=== PATIENT | female | born 1955 | race Caucasian/White ===

== ENCOUNTER → 2017-09-30 | Outpatient (CLI) | payer MEDICAID | LOC: FIMAGING 12:28 | PROVIDERS: ATTEND Thoracic Surgery (Cardiothoracic Vascular Surgery) | DX: I51.7 Cardiomegaly (principal); I25.10 Atherosclerotic heart disease of native coronary artery without angina pectoris ==

== ENCOUNTER 2017-10-01 06:46 | Inpatient (IN) | payer MEDICAID, OTHER ==
[~2017-10-01 06:46] MED LIST: ADENOSINE 6 MG/2 ML VIAL ONE; ALBUMIN 5% 250 ML BOTTLE IV ONE; AMINOCAPROIC ACID 5 GM/20 ML VIAL IV ONE; AMIODARONE HCL 150 MG/3 ML VIAL ONE; CALCIUM CHLORIDE 1 GM/10 ML INJ ONE; CHLORHEXIDINE GLUC HIBICLENS 118 ML BTL TP SCH; CITRATE DEXTROSE SOLN 500 ML BAG MISC ONE; CITRATE DEXTROSE SOLN 500 ML BAG ONE; DOPamine/DEXTROSE/250 ML BAG IV ONE; HEPARIN 10,000 UNIT/10 ML MDV ONE; INSULIN REGULAR HUMAN 100 UNIT in NS 100 ML IV ONE; LIDOCAINE 2% 100 MG/5 ML SYR ONE; MAGNESIUM SULFATE 1 GM/2 ML VIAL ONE; MANNITOL 25% 12.5 GM/50 ML VIAL IVP ONE; MILRINONE/DEXTROSE/100 ML BAG IV ONE; MUPIROCIN 2% 22 GM OINT NS ONE; NA BICARBONATE 50 MEQ/50 ML VIAL ONE; NOREPINEPHRINE BITARTRATE 16 MG in NS 250 ML IV ONE; PHENYLEPHRINE HCL 50 MG in NS 250 ML IV ONE; PROTAMINE SULFATE 50 MG/5 ML VIAL IVP ONE; SODIUM BICARBONATE 20 MEQ, LIDOCAINE 1% 10 ML in NORMOSOL-R 1,000 ML MISC ONE; VERAPAMIL 5 MG, NITROGLYCERIN 2.5 MG, HEPARIN 500 UNIT, SODIUM BICARBONATE 0.2 MEQ in L... MISC ONE; ceFAZolin 1 GM VIAL ONE; ceFAZolin 2 GM/SWFI 2 GM/20 ML SYR IVP ONE; methylPREDNISolone SOD SUCC 1 GM/8 ML VIAL ONE; niCARdipine/NACL 200 ML IV SCH; niCARdipine/NACL/200 ML BAG IV ONE
[2017-10-01] MEDS ORDERED: PAPAVERINE HCL 60 MG/2 ML SDV ONE ×2 (07:22→12:06)
[2017-10-01] MEDS ORDERED: VERAPAMIL 5 MG/2 ML VIAL ONE ×2 (07:22→12:06)
[2017-10-01] MEDS ORDERED: MINERAL OIL 10 ML VIAL ONE ×2 (07:22→12:06)
[2017-10-01] MEDS ORDERED: LIDOCAINE 1% 2 ML INJ ID PRN (07:27)
[2017-10-01] MEDS ORDERED: LR 1,000 ML IV ONE (07:27)
--- NOTE | 2017-10-01 07:36 | PDHPUP ---
History & Physical Update H&P update statement: This history and physical update is based on an assessment of the patient which was completed after admission or registration (within 24 hours), but prior to the surgery/procedure. H&P update: H&P reviewed & patient examined H&P changes: - Tired more often. - Slight LFT elevation - will monitor post-op
[2017-10-01] MEDS ORDERED: MIDAZOLAM 2 MG/2 ML VIAL IVP ONE (08:12)
--- NOTE | 2017-10-01 08:12 | PDANEPAE ---
ANE History of Present Illness 62 yo for cabg ef 35 ANE Past Medical History - Cardiovascular History Hx Hypertension: No Hx Arrhythmias: No Hx Chest Pain: Yes Hx Coronary Artery / Peripheral Vascular Disease: Yes Hx CHF / Valvular Disease: Yes Hx Palpitations: No Cardiovascular History Comment: acute mi 02/05/17. chf. hyperlipidemia. thrombus in heart chamber - Pulmonary History Hx COPD: No Hx Asthma/Reactive Airway Disease: Yes Hx Recent Upper Respiratory Infection: No Hx Oxygen in Use at Home: No Hx Sleep Apnea: Yes Sleep Apnea Screening Result - Last Documented: Positive Pulmonary History Comment: asthma. hx of bronchitis and pna. bernadette positive- unable to tolerate cpap in hospital - Neurologic History Hx Cerebrovascular Accident: No Hx Seizures: No Hx Dementia: No - Endocrine History Hx Diabetes: No Endocrine History Comment: hypothyroidism - Renal History Hx Renal Disorders: Yes Renal History Comment: renal insufficiency - Liver History Hx Hepatic Disorders: Yes Hepatic History Comment: elevated LFT's - Neurological & Psychiatric Hx Hx Neurological and Psychiatric Disorders: No - Cancer History Hx Cancer: Yes Cancer History Comment: liver cancer dx'd in 2003. chemo x 14 mos - Congenital Disorder History Hx Congenital Disorders: No - GI History Hx Gastrointestinal Disorders: Yes Gastrointestinal History Comment: hx vomitting extensively during chemo - Other Health History Other Health History: wears glasses/ contacts. full dentures - Chronic Pain History Chronic Pain: Yes (left leg, back pain) - Surgical History Prior Surgeries: tonsillectomy. dawn. wrist surgery. left leg surgery. liver biopsies ANE Review of Systems Review of Systems: - Exercise capacity METS (RN): 3 METS ANE Patient History - Allergies Allergies/Adverse Reactions: amoxicillin Allergy (Verified 09/23/17 10:30) giant hives and very swollen Penicillins Allergy (Verified 10/01/17 08:04) giant hives and very swollen sharp smells Allergy (Uncoded 09/23/17 10:30) send her into a coughing fit - Home Medications Home medications: home medication list seen and reviewed Home Medications: Albuterol [Proventil Inhaler HFA (*)] 1 - 2 puffs IH DAILY PRN 10/01/17 [Last Taken Unknown] Aspirin [Aspirin EC] 500 mg PO DAILY 10/01/17 [Last Taken 09/30/17] Atorvastatin Calcium [Lipitor 40 mg (*)] 80 mg PO HS 10/01/17 [Last Taken 22:00] Carvedilol [Coreg (*)] 3.125 mg PO BID 10/01/17 [Last Taken 09/30/17 22:00] Levothyroxine [Synthroid 137 mcg (*)] 137 mcg PO DAILY06 10/01/17 [Last Taken 05:00] Nitroglycerin [Nitrostat 0.4 mg (*)] 0.4 mg SL Q5M PRN 10/01/17 [Last Taken Unknown] - NPO status NPO Status: no food or drink >8 hours NPO Since - Liquids (Date): 09/30/17 NPO Since - Liquids (Time): 22:00 NPO Since - Solids (Date): 09/30/17 NPO Since - Solids (Time): 22:00 - Smoking Hx Smoking Status: Never smoked - Family Anes Hx Family Hx Anesthesia Complications: none ANE Labs/Vital Signs - Vital Signs Blood Pressure: 136/84 Heart Rate: 77 Respiratory Rate: 20 O2 Sat (%): 95 Height: 5 ft 5 in Weight: 88.904 kg ANE Physical Exam - Airway Neck exam: FROM Mallampati Score: Class 1 Mouth exam: dentures - Pulmonary Pulmonary: no respiratory distress - Cardiovascular Cardiovascular: regular rate and rhythym - ASA Status ASA Status: IV ANE Anesthesia Plan Anesthesia Plan: general endotracheal anesthesia Lines/Monitors: arterial line, central line, AUNG
[2017-10-01] MEDS ORDERED: MIDAZOLAM 2 MG/2 ML VIAL ONE (08:15)
[2017-10-01] MEDS ORDERED: PROPOFOL/EMULSION 500 MG/50 ML BOTTLE IV ONE (08:21)
[2017-10-01] MEDS ORDERED: fentaNYL 100 MCG/2 ML INJ ONE ×2 (08:21→13:28)
[2017-10-01] MEDS ORDERED: REMIFENTANIL HCL 1 MG VIAL ONE (08:21)
[2017-10-01] MEDS ORDERED: DEXMEDETOMIDINE HCL 400 MCG in NS 100 ML IV SCH (08:30)
[2017-10-01] MEDS ORDERED: DEXMEDETOMIDINE IN 0.9 % NACL 100 ML IV SCH (08:30)
[2017-10-01] MEDS ORDERED: ceFAZolin 2 GM/SWFI 20 ML SYR IVP ONE (08:33)
[2017-10-01] MEDS ORDERED: MAGNESIUM SULF 2 GM/WATER 50 ML BAG IV ONE (10:15)
[2017-10-01] MEDS ORDERED: ALBUMIN 5% 250 ML BOTTLE IV ONE (10:41)
[2017-10-01] MEDS ORDERED: CEPACOL LOZENGE PO PRN (13:51)
[2017-10-01] MEDS ORDERED: D50W 25 GM/50 ML SYR IVP PRN (13:51)
[2017-10-01] MEDS ORDERED: fentaNYL 100 MCG/2 ML INJ IVP PRN (13:51)
[2017-10-01] MEDS ORDERED: LACTULOSE 20 GM/30 ML UDCUP PO PRN (13:51)
[2017-10-01] MEDS ORDERED: METOCLOPRAMIDE 10 MG/2 ML VIAL IVP PRN (13:51)
[2017-10-01] MEDS ORDERED: MAGNESIUM HYDROXIDE 30 ML UDCUP PO PRN (13:51)
[2017-10-01] MEDS ORDERED: BISACODYL 10 MG SUPP PR PRN (13:51)
[2017-10-01] MEDS ORDERED: POLYETHYLENE GLYCOL 3350 17 GM PKT PO PRN (13:51)
[2017-10-01] MEDS ORDERED: MEPERIDINE 25 MG/ML SYR IVP PRN (13:51)
[2017-10-01] MEDS ORDERED: POTASSIUM Cl (KCl) 50 ML IV PRN (13:51)
[2017-10-01] MEDS ORDERED: MAGNESIUM SULF 2 GM/WATER 50 ML IV ONE (13:51)
[2017-10-01] MEDS ORDERED: PANTOPRAZOLE SODIUM 40 MG VIAL IVP ONE (13:51)
[2017-10-01] MEDS ORDERED: ONDANSETRON DISINTEGRATING 4 MG TAB PO PRN (13:51)
[2017-10-01] MEDS ORDERED: SODIUM CL NASAL 45 ML BTL EACHNARE PRN (13:51)
[2017-10-01] MEDS ORDERED: ACETAMINOPHEN 650 MG SUPP PR PRN (13:51)
[2017-10-01] MEDS ORDERED: NS 1,000 ML IV SCH (14:00)
[2017-10-01] MEDS ORDERED: INSULIN REGULAR HUMAN 100 UNIT in NS 100 ML IV SCH (14:00)
[2017-10-01] MEDS ORDERED: SODIUM BICARBONATE 50 MEQ/50 ML SYR ONE (14:41)
--- NOTE | 2017-10-01 14:42 | GOP ---
[f rep st] OPERATIVE REPORT DATE OF OPERATION: SURGEON: Bon Montoya DO INTERMODAL OWNER OPERATOR TRUCK DRIVER: CORRINA Sanders. ANESTHESIA: Zacarias Epstein MD. PREOPERATIVE DIAGNOSIS: Ischemic cardiomyopathy with severe 3-vessel disease. POSTOPERATIVE DIAGNOSIS: Ischemic cardiomyopathy with severe 3-vessel disease. PROCEDURE PERFORMED: 1. Coronary bypass grafting x5 with left internal mammary artery to the left anterior descending, sa phenous vein graft to the diagonal, saphenous vein graft to the posterior lateral circumflex, sapheno us vein graft to the marginal right, sequential to the posterior descending artery. 2. AtriClip to the left atrial appendage. 3. Endoscopic vein harvest by CORRINA Sanders. FINDINGS: DESCRIPTION OF PROCEDURE: Patient was consented for surgery, brought to the operating room intubated , and monitoring lines were placed. She was prepped and draped in sterile classical manner. A time- out was confirmed with the team. Sternotomy was performed. A good quality 2 mm mammary with brisk f low was harvested while vein was harvested from the left leg endoscopically by Francis Hatch, who first assisted throughout the procedure. The vein was considered good quality, measuring 3-3.2 mm in diam eter without varicosities. Patient was heparinized and cannulated, and bypass was begun. A cardiopl egic arrest was obtained with antegrade cardioplegia topical hypothermia, and systemic cooling. Atte mpts of placing a retrograde were unsuccessful and was not forced. The ejection fraction was 30% pre operatively. There was evidence of a large lateral wall infarction and large anterior wall infarctio n in the past. She had severe diffuse 3-vessel disease (please see cath report). After arresting th e heart, the left atrial appendage was clipped with a 35 mm clip without difficulty. We then proceed ed with grafting the posterior lateral circumflex, which was a 2 mm vessel with good flow. This was brought off the ascending aorta with a cross-clamp on. We then grafted the diagonal, which was a 1.5 mm vessel but with a brisk flow, again brought off the ascending aorta. The mammary was grafted to the mid LAD, which was a chronically occluded diffusely small vessel. It was tacked to the epicardiu m. Rewarming was begun while a vein graft was anastomosed to the marginal branch of the right cabrera ry artery, which was a 2 mm vessel, and then to the PDA, which was a 3 mm vessel. The proximal anast omosis was completed. The cross-clamp was removed with suction on the ascending aortic vent. Sponta neous cardiac activity was noted to resume. Patient was then weaned from bypass. Heparin was revers ed with protamine. Cannulae were removed and oversewn. Two ventricular pacing wires and one left pl eural and one mediastinal drains were placed. The thymic fat and pericardium were closed. Chest was closed in a standard fashion. Patient was returned to ICU in stable condition. /[id number]/MODL
[2017-10-01] MEDS ORDERED: SODIUM BICARBONATE 50 MEQ/50 ML SYR IVP ONE (15:00)
[2017-10-01] MEDS: ALBUMIN 5% 250 ML IV PRN ×2 (15:00→16:27)
--- NOTE | 2017-10-01 15:00 | CPEKG ---
Heart Rate: 104 RR Interval: 577 P-R Interval: 176 QRSD Interval: 88 QT Interval: 356 QTC Interval: 469 P Scott: 62 QRS Scott: -23 T Wave Scott: 115 EKG Severity - ABNORMAL ECG - EKG Impression: SINUS TACHYCARDIA EKG Impression: ANTERIOR INFARCT, OLD Electronically Signed By: Ciara Robertson 02-Oct-2017 06:47:01
[2017-10-01] MEDS: POTASSIUM Cl (KCl) 20 MEQ in NS 50 ML IV SCH ×2 (15:28→16:30)
[2017-10-01 16:03] LABS: CALCULATED OXYGEN SATURATION 95 % (92-95); O2 CONCENTRATIION 60 % (0-100)
--- NOTE | 2017-10-01 16:59 | POSTANESTH ---
Post Anesthetic Evaluation Cardiovascular Status: Tx Hyper/Hypo-tension Respiratory Status: Other, See Comment Level of Consciousness/Mental Status: Unconscious Pain Control: Adequate, Prn Tx Ordered Nausea/Vomiting Control: Adequate, Prn Tx Ordered Complications Possibly Related to Anesthesia: None Noted (sicu on vent, sedated)
[2017-10-01] MEDS: ONDANSETRON 4 MG/2 ML VIAL IVP PRN (20:12)
[2017-10-01] MEDS: ceFAZolin 2 GM/DEXTROSE 100 ML IV SCH (22:05)
[2017-10-01] MEDS: MUPIROCIN 2% 22 GM OINT NS SCH (22:14)
[2017-10-01] MEDS: SENNOSIDES/DOCUSATE SODIUM TAB PO SCH (22:14)
[2017-10-02 00:13] LABS: HEMATOCRIT 29.6 % (38.0-47.0); HEMOGLOBIN 9.9 g/dL (12.6-16.3); MEAN CELL HEMOGLOBIN 29.5 pg (27.9-34.1); MEAN CELL HEMOGLOBIN CONCENTR. 33.4 g/dL (32.4-36.7); MEAN CELL VOLUME 88.1 fL (81.5-99.8); RED BLOOD CELL COUNT 3.36 10^6/uL (4.18-5.33); RED CELL DISTRIBUTION WIDTH 14.9 % (11.5-15.2)
[2017-10-02] MEDS ORDERED: DOPamine/DEXTROSE/250 ML BAG IV ONE (01:14)
[2017-10-02] MEDS: HYDROCODONE/APAP 5/325 TAB PO PRN ×3 (01:45→12:04)
[2017-10-02] MEDS: ceFAZolin 2 GM/DEXTROSE 100 ML IV SCH ×3 (05:53→20:59)
[2017-10-02 06:09] LABS: % IMMATURE GRANULYOCYTES 0.5 % (0.0-1.1); ABSOLUTE IMMATURE GRANULOCYTES 0.09 10^3/uL (0.00-0.10); ADD DIFF? NO; ADD MORPH? NO; ADD SCAN? NO; ATYPICAL LYMPHOCYTE FLAG 0 (0-99); FRAGMENT RBC FLAG 0 (0-99); HEMATOCRIT 29.4 % (38.0-47.0); HEMOGLOBIN 9.3 g/dL (12.6-16.3); LEFT SHIFT FLG 10 (0-99); LIPEMIA HEMOLYSIS FLAG 80 (0-99); MEAN CELL HEMOGLOBIN 28.4 pg (27.9-34.1); MEAN CELL HEMOGLOBIN CONCENTR. 31.6 g/dL (32.4-36.7); MEAN CELL VOLUME 89.6 fL (81.5-99.8); MEAN PLATELET VOLUME 10.2 fL (8.7-11.7); PLATELET CLUMPS FLAG 0 (0-99); PLATELET COUNT 123 10^3/uL (150-400); RED BLOOD CELL COUNT 3.28 10^6/uL (4.18-5.33)
[2017-10-02 06:23] LABS: ANION GAP 13 mEq/L (8-16); CALCIUM 9.4 mg/dL (8.5-10.4); CARBON DIOXIDE 23 mEq/l (22-31); CHLORIDE 112 mEq/L (97-110); CREATININE 0.9 mg/dL (0.6-1.0); GLOMERULAR FILTRATION RATE > 60; GLUCOSE 114 mg/dL (70-100); POTASSIUM 4.7 mEq/L (3.5-5.2); SODIUM 148 mEq/L (134-144)
[2017-10-02] MEDS: HEPARIN 5,000 UNIT/0.5 ML SYR SC SCH ×3 (06:51→20:56)
--- NOTE | 2017-10-02 07:59 | SOAPPROG ---
SOAP Progress Note Assessment/Plan: Assessment: POD#1 CABG x 5 (ALANIZ-LAD, SV-DX, SV-PLC, SV sequentially to AM & PDA ), prophylactic AtriClip ligation left atrial appendage Sx CAD - s/p CABG. Stable early postop course. Secondary prevention with ASA, BB as allowed BP, and statin when eating well. Dilated ISCM with chronic sCHF, medically compensated - Hx anteroapical MIs > 6 mo ago. LVEF 35%. No significant change post revasc. Transient inotropic support. Rhythm stable. Moderate fluid overload well tolerated. Staggered intro of HF as tolerated. Acute expected blood loss anemia - Stable. No transfusions required. VTE prophylaxis with SQ hep. Asthma - Cold induced. Stable. PAVEL - Stable. Extubated without incident. Minimal suppl O2. DJD/LLE weakness - Use of cane. May benefit from rehab if mobility significantly impaired with sternal precautions. Plan: Routine POD#1 orders re lines, drains, TCPWs, orals and mobility. Begin daily diuresis. Resume Coreg 3.125 mg BID. Tx to PCU. 10/02/17 07:57 Subjective: Feels better than expected. Able to sleep a little overnight. Woozy getting OOB into chair this am, but promptly clear. No nausea. Adequate analgesia. Objective: Vital Signs Temp Pulse Resp BP Pulse Ox 37.7 C 86 27 H 117/60 99 10/02/17 06:51 10/02/17 06:51 10/02/17 06:51 10/02/17 06:51 10/02/17 06:51 Laboratory Results 10/02/17 05:45 10/02/17 05:45 10/01/17 10/02/17 10/03/17 05:59 05:59 05:59 Intake Total 2113.9 Output Total 1340 Balance 773.9 Extubated last night without incident. Dobutamine early postop, off overnoc. HR and rhythm stable. No backup pacing. CXR -> hypoventilation, small left pl effusion despite pl tube in good position , bibasilar atelectasis L>R Excellent sats on 2 Lpm. Likely could reduce to 1 Lpm. No significant CTOP. Positive fluid balance. +5 kg overall. Labs as expected. Physical Exam - Physical Exam General Appearance: alert, no apparent distress Respiratory: decreased breath sounds (bilat bases), other (blakes x 2 y-d to pleurovac, no tidal, no air leak) Cardiac/Chest: regular rate, rhythm, other (Sternotomy and LLE venotomy CDI. Vwires intact) Abdomen: normal bowel sounds, non-tender, soft Skin: warm/dry Extremities: swelling (2+ generalized) ICD10 Worksheet Patient Problems: Problems Problem Status Onset S/P CABG x 5 Acute CAD (coronary artery disease) Chronic Ischemic cardiomyopathy Chronic
[2017-10-02] MEDS ORDERED: FUROSEMIDE 40 MG/4 ML VIAL IVP ONE (08:44)
[2017-10-02] MEDS ORDERED: ALBUTEROL 60 PUFFS/8 GM MDI IH PRN (08:48)
[2017-10-02] MEDS ORDERED: ASPIRIN 81 MG CHEWABLE TAB TUBE PRN (09:00)
[2017-10-02] MEDS: SENNOSIDES/DOCUSATE SODIUM TAB PO SCH ×2 (09:27→21:04)
[2017-10-02] MEDS: MUPIROCIN 2% 22 GM OINT NS SCH ×2 (09:27→20:58)
[2017-10-02] MEDS: ASPIRIN 81 MG CHEWABLE TAB PO SCH (09:27)
[2017-10-02] MEDS: PANTOPRAZOLE SODIUM 40 MG TAB PO SCH (09:27)
[2017-10-02 12:30] LABS: POTASSIUM 4.7 mEq/L (3.5-5.2)
[2017-10-02] MEDS ORDERED: ceFAZolin 2 GM/SWFI 2 GM/20 ML SYR IVP ONE (13:30)
[2017-10-02] MEDS: traMADol 50 MG TAB PO PRN ×2 (13:38→17:55)
[2017-10-02] MEDS: ONDANSETRON 4 MG/2 ML VIAL IVP PRN ×2 (17:04→20:54)
[2017-10-02] MEDS: CARVEDILOL 3.125 MG TAB PO SCH ×2 (17:09→20:54)
[2017-10-03] MEDS: HEPARIN 5,000 UNIT/0.5 ML SYR SC SCH ×3 (05:59→21:38)
[2017-10-03] MEDS: ceFAZolin 2 GM/DEXTROSE 100 ML IV SCH (05:59)
[2017-10-03] MEDS: traMADol 50 MG TAB PO PRN ×2 (06:00→18:47)
[2017-10-03] MEDS: LEVOTHYROXINE 137 MCG TAB PO SCH (06:02)
[2017-10-03 06:17] LABS: % IMMATURE GRANULYOCYTES 0.9 % (0.0-1.1); ABSOLUTE IMMATURE GRANULOCYTES 0.21 10^3/uL (0.00-0.10); ADD DIFF? NO; ADD MORPH? NO; ADD SCAN? NO; ATYPICAL LYMPHOCYTE FLAG 0 (0-99); FRAGMENT RBC FLAG 0 (0-99); HEMATOCRIT 26.6 % (38.0-47.0); HEMOGLOBIN 8.3 g/dL (12.6-16.3); LEFT SHIFT FLG 10 (0-99); LIPEMIA HEMOLYSIS FLAG 80 (0-99); MEAN CELL HEMOGLOBIN 28.6 pg (27.9-34.1); MEAN CELL HEMOGLOBIN CONCENTR. 31.2 g/dL (32.4-36.7); MEAN CELL VOLUME 91.7 fL (81.5-99.8); MEAN PLATELET VOLUME 11.2 fL (8.7-11.7); PLATELET CLUMPS FLAG 10 (0-99); PLATELET COUNT 136 10^3/uL (150-400); RED CELL DISTRIBUTION WIDTH 15.3 % (11.5-15.2)
[2017-10-03 06:58] LABS: ANION GAP 11 mEq/L (8-16); CARBON DIOXIDE 29 mEq/l (22-31); CHLORIDE 102 mEq/L (97-110); CREATININE 1.1 mg/dL (0.6-1.0); GLOMERULAR FILTRATION RATE 50; GLUCOSE 159 mg/dL (70-100); POTASSIUM 4.7 mEq/L (3.5-5.2); SODIUM 142 mEq/L (134-144)
--- NOTE | 2017-10-03 06:59 | SOAPPROG ---
SOAP Progress Note Assessment/Plan: POD#2 CABG x 5 (ALANIZ-LAD, SV-DX, SV-PLC, SV sequentially to AM & PDA), prophylactic AtriClip ligation left atrial appendage Sx CAD - s/p CABG. Stable early postop course. Secondary prevention with ASA, BB , and statin. Dilated ISCM with chronic sCHF (LVEF 35%) - Continue Coreg and Lasix prn. Acute expected blood loss anemia - Stable. No transfusions required. VTE prophylaxis with SQ hep. Asthma - Cold induced. Stable. PAVEL - Stable. Extubated without incident. Minimal suppl O2. DJD/LLE weakness - Use of cane. May benefit from rehab if mobility significantly impaired with sternal precautions. Subjective: Feels puffy. Slightly SOB. Pain well-controlled. Vomited yesterday after having a smoothie. Objective: Vital Signs Temp Pulse Resp BP Pulse Ox 36.8 C 85 16 119/72 99 10/03/17 04:32 10/03/17 04:32 10/03/17 04:32 10/03/17 04:32 10/03/17 04:32 Laboratory Results 10/03/17 06:00 10/02/17 10/03/17 10/04/17 05:59 05:59 05:59 Intake Total 2113.9 760 Output Total 1340 1005 Balance 773.9 -245 Physical Exam - Physical Exam General Appearance: WD/WN, alert, no apparent distress, obese EENT: No scleral icterus (R), No scleral icterus (L) Neck: normal inspection Respiratory: respiratory distress (mild) Cardiac/Chest: regular rate, rhythm Abdomen: non-tender, soft, No distended Skin: normal color, warm/dry Extremities: pedal edema Neuro/Psych: no motor/sensory deficits, alert, normal mood/affect, oriented x 3 ICD10 Worksheet Patient Problems: Problems Problem Status Onset S/P CABG x 5 Acute CAD (coronary artery disease) Chronic Ischemic cardiomyopathy Chronic
[2017-10-03] MEDS ORDERED: FUROSEMIDE 40 MG/4 ML VIAL IVP ONE (07:18)
[2017-10-03] MEDS: PANTOPRAZOLE SODIUM 40 MG TAB PO SCH (08:31)
[2017-10-03] MEDS: CARVEDILOL 3.125 MG TAB PO SCH ×2 (08:31→21:38)
[2017-10-03] MEDS: ASPIRIN 81 MG CHEWABLE TAB PO SCH (08:32)
[2017-10-03] MEDS: SENNOSIDES/DOCUSATE SODIUM TAB PO SCH ×2 (08:32→21:38)
[2017-10-03] MEDS: MUPIROCIN 2% 22 GM OINT NS SCH (08:35)
[2017-10-03] MEDS ORDERED: AMIODARONE HCL 100 ML IV ONE (09:01)
[2017-10-03] MEDS ORDERED: AMIODARONE HCL 540 MG in D5W 300 ML IV ONE (09:01)
[2017-10-03] MEDS ORDERED: AMIODARONE HCL 200 ML IV ONE (09:01)
[2017-10-03] MEDS ORDERED: METOPROLOL TARTRATE 5 MG/5 ML INJ IVP ONE (09:15)
--- NOTE | 2017-10-03 11:59 | ASMTCMCOM ---
CM Note CM Note Notes: 10/03/2017 Case Management Note Met w/pt. Pt room mate Trevon Arce [phone] is current with [facility]. Pt requested referral to [facility]. Faxed referral on [email or web address]. Pt has preplanned for surgery and has meals in the freezer. There is no family support but pt feels her room mate is able to care for her at d/c. Case Management d/c poc: Home Care with [facility] agency pending acceptance. Case Management to follow. Date Signed: 10/03/2017 11:59 AM Electronically Signed By:Geovanna Chu RN
[2017-10-03] MEDS: HYDROCODONE/APAP 5/325 TAB PO PRN (22:14)
[2017-10-04] MEDS: traMADol 50 MG TAB PO PRN (04:22)
[2017-10-04] MEDS: ONDANSETRON 4 MG/2 ML VIAL IVP PRN (04:22)
[2017-10-04] MEDS: LEVOTHYROXINE 137 MCG TAB PO SCH (04:23)
[2017-10-04] MEDS: HEPARIN 5,000 UNIT/0.5 ML SYR SC SCH ×3 (04:58→21:36)
[2017-10-04 05:35] LABS: HEMATOCRIT 24.6 % (38.0-47.0); HEMOGLOBIN 7.8 g/dL (12.6-16.3); MEAN CELL HEMOGLOBIN 29.3 pg (27.9-34.1); MEAN CELL HEMOGLOBIN CONCENTR. 31.7 g/dL (32.4-36.7); MEAN CELL VOLUME 92.5 fL (81.5-99.8); RED BLOOD CELL COUNT 2.66 10^6/uL (4.18-5.33); RED CELL DISTRIBUTION WIDTH 14.8 % (11.5-15.2)
[2017-10-04 05:50] LABS: ANION GAP 10 mEq/L (8-16); CALCIUM 8.8 mg/dL (8.5-10.4); CARBON DIOXIDE 28 mEq/l (22-31); CHLORIDE 100 mEq/L (97-110); GLOMERULAR FILTRATION RATE 56; GLUCOSE 149 mg/dL (70-100); POTASSIUM 4.5 mEq/L (3.5-5.2); SODIUM 138 mEq/L (134-144)
[2017-10-04] MEDS ORDERED: FUROSEMIDE 40 MG/4 ML VIAL IVP ONE (07:07)
--- NOTE | 2017-10-04 07:10 | SOAPPROG ---
SOAP Progress Note Assessment/Plan: POD#3 CABG x 5 (ALANIZ-LAD, SV-DX, SV-PLC, SV sequentially to AM & PDA), prophylactic AtriClip ligation left atrial appendage Sx CAD - s/p CABG. Stable early postop course. Secondary prevention with ASA, BB , and statin. Dilated ISCM with chronic sCHF (LVEF 35%) - Continue Coreg and Lasix prn. Consider MUSTAPHA/ARB in future. +5kg from pre-op weight. Will increase Lasix today to BID. Acute expected blood loss anemia - [place] HCT trend without signs of active bleeding. No transfusions required. VTE prophylaxis with SQ hep. Iron started. Asthma - Cold induced. Stable. PAVEL - Stable. Extubated without incident. Minimal suppl O2. DJD/LLE weakness - Use of cane. May benefit from rehab if mobility significantly impaired with sternal precautions. Paroxysmal post-operative atrial fibrillation with RVR - Quick conversion to SR with amiodarone gtt. Continue BB/amiodarone. Thromboprophylaxis deferred d/t short duration as well as benefit of left atrial appendage closure. Disposition - Home Friday, possible with services (impaired mobility) Subjective: Denies SOB/CP. Feels puffy. Objective: Vital Signs Temp Pulse Resp BP Pulse Ox 36.8 C 73 16 139/82 H 97 10/04/17 04:00 10/04/17 04:00 10/04/17 04:00 10/04/17 04:00 10/04/17 04:00 Laboratory Results 10/04/17 05:05 10/04/17 05:05 10/03/17 10/04/17 10/05/17 05:59 05:59 05:59 Intake Total 760 1785 Output Total 1005 1105 Balance -245 680 Physical Exam - Physical Exam General Appearance: WD/WN, alert, no apparent distress, obese EENT: No scleral icterus (R), No scleral icterus (L) Neck: normal inspection Respiratory: No respiratory distress Cardiac/Chest: regular rate, rhythm Abdomen: non-tender, soft, No distended Skin: normal color, warm/dry Extremities: pedal edema Neuro/Psych: no motor/sensory deficits, alert, normal mood/affect, oriented x 3 ICD10 Worksheet Patient Problems: Problems Problem Status Onset S/P CABG x 5 Acute CAD (coronary artery disease) Chronic Ischemic cardiomyopathy Chronic
--- NOTE | 2017-10-04 08:08 | SOAPPROG ---
SOAP Progress Note Assessment/Plan: Assessment: Plan: Objective: Vital Signs Temp Pulse Resp BP Pulse Ox 36.6 C 79 12 133/80 H 100 10/04/17 07:33 10/04/17 07:33 10/04/17 07:33 10/04/17 07:33 10/04/17 07:33 Laboratory Results 10/04/17 05:05 10/04/17 05:05 10/03/17 10/04/17 10/05/17 05:59 05:59 05:59 Intake Total 760 1785 Output Total 1005 1105 Balance -245 680 Afebrile VSS Remains in NSR Good UO On 1.5L O2 Minimal pain Lungs clear ant Cor RRR w/o m Wound clean Home 1-2 days ICD10 Worksheet Patient Problems: Problems Problem Status Onset S/P CABG x 5 Acute CAD (coronary artery disease) Chronic Ischemic cardiomyopathy Chronic
[2017-10-04] MEDS ORDERED: AMIODARONE HCL 200 MG TAB PO SCH (09:00)
[2017-10-04] MEDS: AMIODARONE HCL 200 MG TAB PO SCH ×2 (09:35→20:23)
[2017-10-04] MEDS: POTASSIUM CL 10 MEQ TAB PO SCH ×2 (09:35→14:29)
[2017-10-04] MEDS: SENNOSIDES/DOCUSATE SODIUM TAB PO SCH ×2 (09:38→21:36)
[2017-10-04] MEDS: PANTOPRAZOLE SODIUM 40 MG TAB PO SCH (09:39)
[2017-10-04] MEDS: CARVEDILOL 3.125 MG TAB PO SCH ×2 (09:39→20:24)
[2017-10-04] MEDS: ASPIRIN 81 MG CHEWABLE TAB PO SCH (09:39)
[2017-10-04] MEDS: FERROUS SULFATE 325 MG TAB PO SCH ×2 (09:40→21:35)
[2017-10-04] MEDS: ACETAMINOPHEN 325 MG TAB PO PRN (13:05)
[2017-10-04] MEDS: FUROSEMIDE 40 MG/4 ML VIAL IVP SCH (14:29)
[2017-10-04] MEDS: HYDROCODONE/APAP 5/325 TAB PO PRN (20:23)
[2017-10-04] MEDS: ATORVASTATIN CALCIUM 40 MG TAB PO SCH (20:23)
[2017-10-05] MEDS: ACETAMINOPHEN 325 MG TAB PO PRN ×3 (05:25→21:27)
[2017-10-05] MEDS: LEVOTHYROXINE 137 MCG TAB PO SCH (05:25)
[2017-10-05] MEDS: HEPARIN 5,000 UNIT/0.5 ML SYR SC SCH ×3 (05:25→21:28)
[2017-10-05 05:48] LABS: HEMATOCRIT 22.4 % (38.0-47.0); HEMOGLOBIN 7.1 g/dL (12.6-16.3)
[2017-10-05 05:57] LABS: POTASSIUM 3.8 mEq/L (3.5-5.2)
--- NOTE | 2017-10-05 07:28 | SOAPPROG ---
SOAP Progress Note Assessment/Plan: POD#4 CABG x 5 (ALANIZ-LAD, SV-DX, SV-PLC, SV sequentially to AM & PDA), prophylactic AtriClip ligation left atrial appendage Sx CAD - s/p CABG. Stable early postop course. Secondary prevention with ASA, BB , and statin. Dilated ISCM with chronic sCHF (LVEF 35%) - Continue Coreg and Lasix BID. Consider MUSTAPHA/ARB in future. +3kg from pre-op weight. Acute expected blood loss anemia - Downwad HCT trend without signs of active bleeding. No transfusions required. VTE prophylaxis with SQ hep. Iron started. Asthma - Cold induced. Stable. PAVEL - Stable. Extubated without incident. Minimal suppl O2. DJD/LLE weakness - Use of cane. May benefit from rehab if mobility significantly impaired with sternal precautions. Paroxysmal post-operative atrial fibrillation with RVR - Quick conversion to SR with amiodarone gtt. Continue BB/amiodarone. Thromboprophylaxis deferred d/t short duration as well as benefit of left atrial appendage closure. Disposition - Home Friday, possible with services (impaired mobility) Subjective: Denies pain/SOB. +BM. Has been ambulating well. Planning on heading home tomorrow. Objective: Vital Signs Temp Pulse Resp BP Pulse Ox 36.4 C 71 18 120/53 L 95 10/05/17 07:19 10/05/17 07:19 10/05/17 07:19 10/05/17 07:19 10/05/17 07:19 Laboratory Results 10/05/17 05:30 10/05/17 05:30 10/04/17 10/05/17 10/06/17 05:59 05:59 05:59 Intake Total 1785 720 Output Total 1105 2100 Balance 680 -1380 Physical Exam - Physical Exam General Appearance: WD/WN, alert, no apparent distress EENT: No scleral icterus (R), No scleral icterus (L) Neck: normal inspection Respiratory: No respiratory distress Cardiac/Chest: regular rate, rhythm Abdomen: non-tender, soft, No distended Skin: normal color, warm/dry Extremities: pedal edema Neuro/Psych: no motor/sensory deficits, alert, normal mood/affect, oriented x 3 ICD10 Worksheet Patient Problems: Problems Problem Status Onset S/P CABG x 5 Acute CAD (coronary artery disease) Chronic Ischemic cardiomyopathy Chronic
[2017-10-05] MEDS ORDERED: POTASSIUM CL 10 MEQ TAB PO SCH (07:43)
[2017-10-05] MEDS ORDERED: POTASSIUM CL 20 MEQ TAB PO ONE (07:43)
[2017-10-05] MEDS: FUROSEMIDE 40 MG/4 ML VIAL IVP SCH ×3 (08:46→15:56)
[2017-10-05] MEDS: ASPIRIN 81 MG CHEWABLE TAB PO SCH (08:46)
[2017-10-05] MEDS: PANTOPRAZOLE SODIUM 40 MG TAB PO SCH (08:46)
[2017-10-05] MEDS: AMIODARONE HCL 200 MG TAB PO SCH ×2 (08:46→21:31)
[2017-10-05] MEDS: FERROUS SULFATE 325 MG TAB PO SCH ×2 (08:46→21:27)
[2017-10-05] MEDS: CARVEDILOL 3.125 MG TAB PO SCH ×2 (08:46→21:28)
[2017-10-05] MEDS ORDERED: POTASSIUM CL 20 MEQ TAB ONE (08:49)
[2017-10-05] MEDS: POTASSIUM CL 20 MEQ TAB PO SCH ×3 (08:50→15:56)
[2017-10-05] MEDS: SENNOSIDES/DOCUSATE SODIUM TAB PO SCH (09:02)
--- NOTE | 2017-10-05 15:37 | SOAPPROG ---
SOAP Progress Note Assessment/Plan: Assessment: CTS s/p CABG atriclip c/o frequent bm's post laxitives c/o heart pounding when advised bp was soft by rn afeb vss x soft bp earlier wds ok well perfused diffuse edema no wheeze normal wob hct low 20's but no evidience active bleeding imp cad/cabg: stable, home 1-2 days when more independent and diuresed further paf post op nsr now: a/c d/w pt. rec no a/c x asa for now given periop bleed risk, atriclip, and anemia acute blood loss anemia: recheck fluid excess/diurese as feasible Plan: 10/05/17 15:34 Objective: Vital Signs Temp Pulse Resp BP Pulse Ox 36.7 C 88 14 86/48 L 97 10/05/17 12:00 10/05/17 12:00 10/05/17 12:00 10/05/17 12:00 10/05/17 12:00 Laboratory Results 10/05/17 05:30 10/05/17 05:30 10/04/17 10/05/17 10/06/17 05:59 05:59 05:59 Intake Total 1785 720 Output Total 1105 2100 Balance 680 -1380 ICD10 Worksheet Patient Problems: Problems Problem Status Onset S/P CABG x 5 Acute CAD (coronary artery disease) Chronic Ischemic cardiomyopathy Chronic
[2017-10-05 19:32] VITALS: RESP 16
[2017-10-05] MEDS: ATORVASTATIN CALCIUM 40 MG TAB PO SCH (21:27)
[2017-10-06] MEDS: HEPARIN 5,000 UNIT/0.5 ML SYR SC SCH (06:06)
[2017-10-06] MEDS: ACETAMINOPHEN 325 MG TAB PO PRN (06:06)
[2017-10-06] MEDS: LEVOTHYROXINE 137 MCG TAB PO SCH (06:07)
[2017-10-06 07:18] LABS: HEMOGLOBIN 7.7 g/dL (12.6-16.3)
[2017-10-06 07:30] VITALS: BP 118/62; PULSE 77; TEMP 98; O2SAT 97
--- NOTE | 2017-10-06 08:05 | SOAPPROG ---
SOAP Progress Note Assessment/Plan: Assessment: POD#5 CABG x 5 (ALANIZ-LAD, SV-DX, SV-PLC, SV sequentially to AM & PDA ), EVH LLE, prophylactic AtriClip ligation left atrial appendage Sx CAD - s/p CABG. Stable early postop course. Secondary prevention with ASA, BB , and statin. Dilated ISCM with chronic sCHF, medically compensated - Hx anteroapical MIs > 6 mo ago. LVEF 35%. No significant change post revasc. Transient inotropic support. Rhythm stable. Active diuresis of moderate fluid overload in progress. Staggered intro of HF as appropriate. Acute expected blood loss anemia - Asx. No transfusions required. Started on 2 wk course of iron suppl. VTE prophylaxis with SQ hep. Postop PAF - with RVR. Quick conversion to SR w amio. Adjunctive rate control w BB. High threshold for thromboprophylaxis as no recurrence and HANNAH excluded. Asthma - Cold induced. Stable. PAVEL - Stable. Extubated without incident. Minimal suppl O2. DJD/LLE weakness - Use of cane. Skilled by PT for HHC while mobility challenged by strict sternal precautions. Plan: Ok for home with [facility]. Instructions re diet, meds, activity, wound care reviewed. 10/06/17 07:57 Subjective: Feels well. No acute concerns. Eager for home. Objective: Vital Signs Temp Pulse Resp BP Pulse Ox 36.7 C 77 16 118/62 97 10/06/17 07:30 10/06/17 07:30 10/06/17 07:30 10/06/17 07:30 10/06/17 07:30 Laboratory Results 10/06/17 06:30 10/05/17 05:30 10/05/17 10/06/17 10/07/17 05:59 05:59 05:59 Intake Total 720 1430 Output Total 2100 3120 Balance -1380 -1690 Holding SR. Off suppl O2. Excellent diuresis. H/H stable. Physical Exam - Physical Exam General Appearance: alert, no apparent distress Respiratory: lungs clear Cardiac/Chest: regular rate, rhythm, other (Sternotomy and LLE venotomy CDI; CT sites clean and moist) Abdomen: non-tender, soft Skin: warm/dry Extremities: swelling (1+ donor leg) ICD10 Worksheet Patient Problems: Problems Problem Status Onset S/P CABG x 5 Acute CAD (coronary artery disease) Chronic Ischemic cardiomyopathy Chronic
[2017-10-06] MEDS: PANTOPRAZOLE SODIUM 40 MG TAB PO SCH (08:22)
[2017-10-06] MEDS: FERROUS SULFATE 325 MG TAB PO SCH (08:23)
[2017-10-06] MEDS: ASPIRIN 81 MG CHEWABLE TAB PO SCH (08:24)
[2017-10-06] MEDS: CARVEDILOL 3.125 MG TAB PO SCH (08:24)
[2017-10-06] MEDS: AMIODARONE HCL 200 MG TAB PO SCH (08:25)
[2017-10-06] MEDS ORDERED: POTASSIUM CL 20 MEQ TAB PO ONE (09:00)
[2017-10-06] MEDS ORDERED: FUROSEMIDE 40 MG TAB PO SCH (09:00)
--- NOTE | 2017-10-06 09:40 | PDIAF ---
- Diagnosis Diagnosis: CAD s/p CABG; postop PAF; LVSD, chronic LLE weakness, asthma Code Status: Full Code - Medication Management Discharge Medications: Medications to Continue on Transfer Albuterol [Proventil Inhaler HFA (*)] 1 - 2 puffs IH DAILY PRN 10/01/17 [Last Taken Unknown] Aspirin [Aspirin EC] 500 mg PO DAILY 10/01/17 [Last Taken 09/30/17] Atorvastatin Calcium [Lipitor 40 mg (*)] 80 mg PO HS 10/01/17 [Last Taken 22:00] Carvedilol [Coreg (*)] 3.125 mg PO BID 10/01/17 [Last Taken 09/30/17 22:00] Levothyroxine [Synthroid 137 mcg (*)] 137 mcg PO DAILY06 10/01/17 [Last Taken 05:00] Nitroglycerin [Nitrostat 0.4 mg (*)] 0.4 mg SL Q5M PRN 10/01/17 [Last Taken Unknown] Acetaminophen [Tylenol 325mg (*)] 325 - 650 mg PO Q4HRS PRN tab 10/06/17 [Last Taken Unknown] Amiodarone HCl [Pacerone (*)] 200 mg PO BID #60 tab 10/06/17 [Last Taken Unknown ] Ferrous Sulfate [Ferrous Sulf 325 MG (*)] 325 mg PO BID #20 tab 10/06/17 [Last Taken Unknown] Furosemide [Lasix 40 MG (*)] 40 mg PO DAILY #30 tab 10/06/17 [Last Taken Unknown ] Potassium Cl [Klor-Con 20 meq (*)] 20 meq PO DAILY #30 tab 10/06/17 [Last Taken Unknown] traMADol [Ultram 50 mg (*)] 50 mg PO Q6-8PRN PRN #20 tab 10/06/17 [Last Taken Unknown] Discharge Medications: Refer to the Discharge Home Medication list for PRN reason. PICC Care - Routine: N/A - Orders Services needed: Home Care, Registered Nurse (cardiorespiratory monitoring; daily x 3, then 3x weekly), Physical Therapy (3x weekly), Occupational Therapy ( 3x weekly) Home Care Face to Face: I certify that this patient was under my care and that I had the required [id number] encounter meeting the encounter requirements on the discharge day. My findings support the fact that the patient is homebound as defined in Home Care Face to Face Continued: CMS Chapter 7 Medicare Benefits Manual 30.1.1 , The condition of the patient is such that there exists a normal inability to leave home and consequently, leaving home would require a considerable and taxing effort. Isolation Type: None Oxygen: n/a Diet Recommendation: cardiac -low fat low salt, fluid restriction (use comment for amount) (1500 ml daily until back to baseline weight and no swelling) Diet Texture: Regular Texture Diet Weigh Patient: daily Parker: Not applicable Wound Care Instructions: daily soap and water. avoid underwater immersion until scabs off. avoid ointments until scabs off Activity/Weight Bearing Restrictions: strict sternal precautions x 2 more weeks. avoid push pull activities. avoid lifting > 10 lbs with an outstretched arm Additional: call [facility] ([facility]) for overnight wt gain > 2 lbs, absolute wt gain > 5 lbs, resting HR , 60 or > 120, SBP < 90 or > 150, SpO2 < 89%, or any wound concerns - Labs/Radiology BMP Date: 10/14/17 (results to [facility]) CBC w/diff Date: 10/14/17 (results to [facility]) Imaging Orders: CXR prior to surgical appointment Call or Fax Lab and Imaging Results to: [facility]: Dr Montoya's nurse Eugenia Carmona - Follow Up Care Current Providers and Referrals: NONE *PRIMARY CARE P,. [Primary Care Provider] - Bon Montoya DO [Doctor of Osteopathy] - 10/15/17 10:00 am
[2017-10-06] MEDS: traMADol 50 MG TAB PO PRN (09:46)
--- NOTE | 2017-10-06 17:26 | ASDISCHSUM ---
Discharge Information Plan Status:Home with Home Health Medically Cleared to Leave:10/05/2017 Discharge Date:10/06/2017 04:45 PM CM D/C Disposition:Home, Routine, Self-Care ADT D/C Disposition:Home Health Service Projected Discharge Date:10/06/2017 11:00 AM Transportation at D/C:Friend Discharge Delay Reason: Follow-Up Date:10/06/2017 11:00 AM Discharge Slot: Final Diagnosis: Placement Information Referral Type:*Home Health Care Services Referral ID:[id number] Provider Name:[facility] Address 1:[address] Address 2: City:[place] Selection Factors: State:[place] Patient Contact Information Contact Name:CINTHYA Relationship:Friend Address: [address] [address] [employer] Phone: City:[facility] Alternate Phone: State/Zip Code:[place] [address] Email: Financial Information Financial Class: Primary Plan Desc:MED[place] Primary Plan Number:[id number] Secondary Plan Desc: Secondary Plan Number: Assessment Information [facility] CM Progress Note CM Note CM Note Notes: 10/03/2017 Case Management Note Met w/pt. Pt room mate Trevon Arce [phone] is current with [facility]. Pt requested referral to [facility]. Faxed referral on [email or web address]. Pt has preplanned for surgery and has meals in the freezer. There is no family support but pt feels her room mate is able to care for her at d/c. Case Management d/c poc: Home Care with [facility] agency pending acceptance. Case Management to follow. Date Signed: 10/03/2017 11:59 AM Electronically Signed By:Geovanna Chu RN Intervention Information
--- NOTE | 2017-10-07 08:16 | PDDCSUM ---
Discharge Summary Discharge Summary: DATE OF ADMISSION: 10/01/17 DATE OF DISCHARGE: 10/06/17 DISPOSITION: Home with home healthcare, RN and PT/OT PRINCIPAL ADMISSION DIAGNOSES: 1. Stable angina pectoris 2. Severe multivessel coronary artery disease PRINCIPAL DISCHARGE DIAGNOSES: 1. Status post coronary artery bypass grafting x 5 2. Status post prophylactic clip ligation of the left atrial appendage 3. Acute expected blood loss anemia 4. Postoperative paroxysmal atrial fibrillation HISTORY OF PRESENT ILLNESS: 62 yo female with stable angina and NYHA class II symptoms following a large AMI last January, referred for surgical revascularization of severe multivessel CAD. LVEF improved from 20% range to 35% range on medical therapy. No significant valvular dysfunction or documented arrhythmia. Admitted for elective CABG. PERTINENT PAST MEDICAL HISTORY: AMI on 02/05/17, Hyperlipidemia, PAVEL, cold induced asthma, hypothyroidism, chronic LLE weakness s/p remote orthopedic procedure MEDICATIONS ON ADMISSION: ASA 500 mg daily, Coreg 3.125 mg BID, Lipitor 80 mg HS, Synthroid 137 mcg daily , Nitrostat 0.4 mg SL q5min prn, Proventil MDI 60 puffs/8gm 1-2 puffs daily prn ALLERGIES/SENSITIVITIES: Amoxicillin and penicillins causing giant hives and swelling CONSULTANTS: none PROCEDURES: 10/01 (Lindsay): Coronary artery bypass grafting x 5 (ALANIZ-LAD, SV-DX, SV-PLC, SV sequentially to AM & PDA). Endoscopic vein harvest LLE. Prophylactic AtriClip ligation of the left atrial appendage. ABBREVIATED HOSPITAL COURSE BY ACTIVE PROBLEM LIST: 1. Sx CAD - s/p CABG. Stable early postop course. Secondary prevention with ASA , BB, and statin. 2. Dilated ISCM with chronic sCHF, medically compensated - Hx anteroapical WV > 6 mo ago. LVEF of 35% preserved without prolonged inotropic support. Extubated without incident. Moderate fluid overload actively diuresed with stable renal fx. HF meds reintroduced in staggered fashion. Insufficient BP for ARB. 3. Acute expected blood loss anemia - Asx. No transfusions required. Started on 2 wk course of iron suppl. 4. Postop PAF with RVR. Single episode quickly converted to SR w amiodarone. Adjunctive rate control w BB. No formal thromboprophylaxis given short duration of arrhythmia and excluded left atrial appendage. 5. DJD/LLE weakness - Reliant on cane. Skilled by PT for HHC while mobility challenged by strict sternal precautions. DISCHARGE CLINICAL INFORMATION: Sternum grossly stable. Sternotomy and LLE venotomy CDI, sutured, +Dermabond. HR 70s. SBP 110s. SpO2 97% RA. Wt 0.9 kg above admission at 88.9 kilos. Hgb 7.7, HCT 24, Plt 120, Na 138, K 3.8, Cr 1.0 DISCHARGE MEDICATIONS: As on admission with the following NEW prescriptions: 1. Amiodarone 200 mg BID thru 10/19/17, then 200 mg daily x 4 weeks or as directed. 2. Lasix 40 mg daily. 3. KlorCon 20 meq daily with lasix. 4. Ferrous sulfate 325 mg BID x 10 more days. 5. Tramadol 50 mg q 6-8h prn incisional discomfort not controlled with tylenol. FOLLOW UP APPOINTMENTS: 1. CV surgery: with Dr Montoya at [facility] on 10/15 at 10:00 am. 2. Cardiology: with Dr Pierce at [facility] within 4-6 weeks. Appointment to be established during surgical visit. FOLLOW UP TESTIN. CBC and BMP on 10/14. Results to [facility]. 2. CXR prior to surgical appointment.
[2017-10-07] MEDS ORDERED: POTASSIUM CL 20 MEQ TAB PO SCH (09:00)
== END 2017-10-06 16:45 | disposition home health service (06) | DRG 236 ==
LOC: F2N 06:46 → F2W 10-02 13:20
PROVIDERS: ADMIT Thoracic Surgery (Cardiothoracic Vascular Surgery); ATTEND Thoracic Surgery (Cardiothoracic Vascular Surgery)
DX: I25.118 Atherosclerotic heart disease of native coronary artery with other forms of angina pectoris (principal); I25.5 Ischemic cardiomyopathy; I48.0 Paroxysmal atrial fibrillation; I97.190 Other postprocedural cardiac functional disturbances following cardiac surgery; I50.22 Chronic systolic (congestive) heart failure; D62 Acute posthemorrhagic anemia; I25.82 Chronic total occlusion of coronary artery; R53.1 Weakness; J45.909 Unspecified asthma, uncomplicated; I34.0 Nonrheumatic mitral (valve) insufficiency; E78.5 Hyperlipidemia, unspecified; G47.33 Obstructive sleep apnea (adult) (pediatric); E03.9 Hypothyroidism, unspecified; N28.9 Disorder of kidney and ureter, unspecified; I25.2 Old myocardial infarction; Z85.05 Personal history of malignant neoplasm of liver; Z88.0 Allergy status to penicillin
CPT/HCPCS: 82947-QW; 97116-GP; 97161-GP; 97166-GO; 97530-GO; 97530-GP; 97535-GO; J0153; J0171; J0282; J0690; J1265; J1644; J1815; J1940; J2001; J2150; J2250; J2260; J2370; J2405; J2440; J2704; J2720; J2765; J2930; J3010; J7060; P9041

== ENCOUNTER → 2017-10-15 | Outpatient (CLI) | payer MEDICAID | LOC: FIMAGING 07:13 | PROVIDERS: ATTEND Thoracic Surgery (Cardiothoracic Vascular Surgery) | DX: Z95.1 Presence of aortocoronary bypass graft (principal); I51.7 Cardiomegaly ==

== ENCOUNTER 2018-01-06 05:48 | Inpatient (IN) | payer MEDICAID ==
[2018-01-06] MEDS ORDERED: VANCOMYCIN PHARMACY TO DOSE MISC ONE (06:03)
[2018-01-06] MEDS ORDERED: LR 1,000 ML IV ONE (06:04)
[2018-01-06] MEDS ORDERED: LIDOCAINE 1% 2 ML INJ ID PRN (06:04)
[2018-01-06] MEDS ORDERED: VANCOMYCIN 1.5 GM in NS 250 ML IV ONE ×2 (06:30→21:00)
--- NOTE | 2018-01-06 06:54 | PDANEPAE ---
ANE History of Present Illness sternal dehisance s/p CABG 10/05 ANE Past Medical History - Cardiovascular History Hx Hypertension: Yes Hx Arrhythmias: Yes Hx Chest Pain: Yes Hx Coronary Artery / Peripheral Vascular Disease: Yes Hx CHF / Valvular Disease: Yes Hx Palpitations: No Cardiovascular History Comment: cabg x5 with lindsay 10/01/17. cath at [facility] 2016. post PAF. acute mi 02/05/17. chf. hyperlipidemia. thrombus in heart chamber - Pulmonary History Hx COPD: No Hx Asthma/Reactive Airway Disease: Yes Hx Recent Upper Respiratory Infection: No Hx Oxygen in Use at Home: No Hx Sleep Apnea: Yes Sleep Apnea Screening Result - Last Documented: Positive Pulmonary History Comment: asthma. hx of bronchitis and pna. bernadette positive- unable to tolerate cpap in hospital - Neurologic History Hx Cerebrovascular Accident: No Hx Seizures: No Hx Dementia: No - Endocrine History Hx Diabetes: No Endocrine History Comment: hypothyroidism - Renal History Hx Renal Disorders: Yes Renal History Comment: renal insufficiency - Liver History Hx Hepatic Disorders: Yes Hepatic History Comment: elevated LFT's - Neurological & Psychiatric Hx Hx Neurological and Psychiatric Disorders: No - Cancer History Hx Cancer: Yes Cancer History Comment: liver cancer dx'd in 2003. chemo x 14 mos - Congenital Disorder History Hx Congenital Disorders: No - GI History Hx Gastrointestinal Disorders: Yes Gastrointestinal History Comment: hx vomitting extensively during chemo - Other Health History Other Health History: wears glasses/ contacts. full dentures - Chronic Pain History Chronic Pain: Yes (left leg, back pain) - Surgical History Prior Surgeries: 10/01/17 cabg x5 with Lindsay. 07/18/17 cardiac cath at [facility]. tonsillectomy. dawn. wrist surgery. left leg surgery. liver biopsies ANE Review of Systems Review of systems is: negative Review of Systems: - Exercise capacity Exercise capacity: >=4 METS ANE Patient History - Allergies Allergies/Adverse Reactions: amoxicillin Allergy (Verified 09/23/17 10:30) giant hives and very swollen Penicillins Allergy (Verified 10/01/17 08:04) giant hives and very swollen sharp smells Allergy (Uncoded 09/23/17 10:30) send her into a coughing fit - Home Medications Home Medications: Albuterol [Proventil Inhaler HFA (*)] 1 - 2 puffs IH DAILY PRN 10/01/17 [Last Taken Unknown] Aspirin [Aspirin EC] 500 mg PO DAILY 10/01/17 [Last Taken 01/05/18] Atorvastatin Calcium [Lipitor 40 mg (*)] 80 mg PO HS 10/01/17 [Last Taken ] Carvedilol [Coreg (*)] 3.125 mg PO BID 10/01/17 [Last Taken 01/05/18] Levothyroxine [Synthroid 137 mcg (*)] 137 mcg PO DAILY06 10/01/17 [Last Taken ] Nitroglycerin [Nitrostat 0.4 mg (*)] 0.4 mg SL Q5M PRN 10/01/17 [Last Taken ] - NPO status NPO Status: no food or drink >8 hours NPO Since - Liquids (Date): 01/05/18 NPO Since - Liquids (Time): 00:00 NPO Since - Solids (Date): 01/05/18 NPO Since - Solids (Time): 20:00 - Anes Hx Anes Hx: no prior problems - Smoking Hx Smoking Status: Never smoked - Alcohol Use Alcohol Use: None - Family Anes Hx Family Anes Hx: none Family Hx Anesthesia Complications: none ANE Labs/Vital Signs - Vital Signs Vital Signs: reviewed preoperatively; see RN documention for details Blood Pressure: 124/71 Heart Rate: 58 Respiratory Rate: 16 O2 Sat (%): 100 Height: 162.4 cm Weight: 90.718 kg ANE Physical Exam - Airway Neck exam: FROM Mallampati Score: Class 2 Mouth exam: dentures - Pulmonary Pulmonary: no respiratory distress - Cardiovascular Cardiovascular: regular rate and rhythym - ASA Status ASA Status: III ANE Anesthesia Plan Anesthesia Plan: general endotracheal anesthesia
[2018-01-06] MEDS ORDERED: MIDAZOLAM 2 MG/2 ML VIAL IVP ONE (06:56)
--- NOTE | 2018-01-06 07:12 | PDHPUP ---
History & Physical Update H&P update statement: This history and physical update is based on an assessment of the patient which was completed after admission or registration (within 24 hours), but prior to the surgery/procedure. H&P update: H&P reviewed & patient examined, no change in patient's condition since H&P completed
[2018-01-06] MEDS ORDERED: DEXAMETHASONE 4 MG/ML VIAL ONE (07:13)
[2018-01-06] MEDS ORDERED: LIDOCAINE 2% 5 ML SDV ONE (07:13)
[2018-01-06] MEDS ORDERED: ROCURONIUM 50 MG/5 ML VIAL ONE ×2 (07:13→08:38)
[2018-01-06] MEDS ORDERED: ONDANSETRON 4 MG/2 ML VIAL ONE (07:13)
[2018-01-06] MEDS ORDERED: fentaNYL 100 MCG/2 ML INJ ONE ×4 (07:13→10:49)
[2018-01-06] MEDS ORDERED: PROPOFOL 200 MG/20 ML VIAL ONE (07:13)
[2018-01-06] MEDS ORDERED: MINERAL OIL 10 ML VIAL ONE (07:16)
[2018-01-06] MEDS ORDERED: SUGAMMADEX SODIUM 200 MG/2 ML VIAL IVP ONE (08:57)
[2018-01-06] MEDS ORDERED: ACETAMINOPHEN 325 MG TAB PO PRN (09:33)
[2018-01-06] MEDS ORDERED: HYDROCODONE/APAP 5/325 TAB PO PRN (09:33)
[2018-01-06] MEDS ORDERED: ONDANSETRON 4 MG/2 ML VIAL IVP PRN ×2 (09:36→10:08)
--- NOTE | 2018-01-06 09:37 | POSTANESTH ---
Post Anesthetic Evaluation Cardiovascular Status: Normal, Stable Respiratory Status: Normal, Stable Level of Consciousness/Mental Status: Can Participate in Eval Pain Control: Adequate, Prn Tx Ordered Nausea/Vomiting Control: Adequate, Prn Tx Ordered Complications Possibly Related to Anesthesia: None Noted
[2018-01-06] MEDS: fentaNYL 100 MCG/2 ML INJ IVP PRN ×2 (09:40→09:45)
[2018-01-06] MEDS ORDERED: DEXAMETHASONE 4 MG/ML VIAL IVP PRN (10:08)
[2018-01-06] MEDS ORDERED: ACETAMINOPHEN 500 MG TAB PO PRN (10:08)
[2018-01-06] MEDS ORDERED: PROMETHAZINE HCL 25 MG/ML INJ IVP PRN (10:08)
[2018-01-06] MEDS ORDERED: LABETALOL HCL 5 MG/ML 20 ML MDV IVP PRN (10:08)
[2018-01-06] MEDS ORDERED: NALOXONE HCL 0.4 MG/ML INJ IVP PRN (10:08)
[2018-01-06] MEDS ORDERED: ALBUTEROL 3 ML DEYVIAL IH PRN (10:08)
[2018-01-06] MEDS ORDERED: oxyCODONE IR 5 MG TAB PO PRN (10:08)
[2018-01-06] MEDS ORDERED: BISACODYL 10 MG SUPP PR PRN (10:11)
[2018-01-06] MEDS ORDERED: POLYETHYLENE GLYCOL 3350 17 GM PKT PO PRN (10:11)
[2018-01-06] MEDS ORDERED: MAGNESIUM HYDROXIDE 30 ML UDCUP PO PRN (10:11)
[2018-01-06] MEDS ORDERED: LACTULOSE 20 GM/30 ML UDCUP PO PRN (10:11)
[2018-01-06] MEDS ORDERED: HYDROmorphONE/DILAUDID 2 MG/ML INJ IVP PRN (10:32)
[2018-01-06] MEDS ORDERED: HYDROCODONE/APAP 5/325 TAB ONE (10:49)
[2018-01-06] MEDS ORDERED: traMADol 50 MG TAB PO PRN ×2 (13:17→13:44)
[2018-01-06] MEDS ORDERED: KETOROLAC 30 MG/1 ML SDV IVP ONE ×2 (13:43→20:00)
[2018-01-06] MEDS: oxyCODONE IR 5 MG TAB PO PRN ×2 (14:33→20:56)
--- NOTE | 2018-01-06 16:43 | PDMN ---
Medical Necessity Medical necessity: IP order per [facility] guidelines ([place] [facility] [place] [address] sternal rewiring
--- NOTE | 2018-01-06 17:52 | GOP ---
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 PROCEDURE PERFORMED: Sternal debridement with rewire. FINDINGS: DESCRIPTION OF PROCEDURE: Patient presented with chest pain 4 weeks into her recovery post sternotom y for CABG when she was lifting heavy boxes in the garage and felt something pop. She since has had clicking and popping sensation, with pain radiating from the sternum to both shoulders. Clinical exa m suggested some movement with coughing, but she was so exquisitely tender that we were unable to pal brown it comfortably. She was consented for surgery, brought to the operating room, intubated, and mo nitoring lines were placed. She was prepped and draped in sterile classical manner. Previous scar w as excised. The sternal bands and wires were removed. The sternotomy appeared to be healed at the t op, but maybe some motion at the bottom. Because of her classic symptoms, I decided that we should s eparate, debride, and rewire. With an oscillating saw, we the bone edges without difficult y. Bleeding was controlled with cauterization. We then did a Robicsek weave on both sides, and reap proximated the sternal edges with sternal bands and wires. The fascia was closed in a standard fashi on, as well as the subcu and skin. Dressings were applied. Patient was returned to recovery room in stable condition. /[id number]/MODL
[2018-01-06] MEDS: ATORVASTATIN CALCIUM 40 MG TAB PO SCH (20:42)
[2018-01-06] MEDS: SENNOSIDES/DOCUSATE SODIUM TAB PO SCH (20:42)
[2018-01-06] MEDS: CARVEDILOL 3.125 MG TAB PO SCH (20:42)
[2018-01-07] MEDS: LEVOTHYROXINE 137 MCG TAB PO SCH (05:06)
[2018-01-07] MEDS: oxyCODONE IR 5 MG TAB PO PRN ×3 (05:06→18:24)
--- NOTE | 2018-01-07 07:28 | SOAPPROG ---
SOAP Progress Note Assessment/Plan: Assessment: POD#1 Sternal debridement and restabilization with Alan live Unstable sternum - Old hardware removed and replaced. No significant drain output. Adequate pain control. Stable CAD - s/p CABG. Secondary prevention with ASA, BB and statin resumed. Plan: Remove drain. Inc activity. 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 01/07/18 07:25 Subjective: Overall, much less upper chest discomfort than before. Worried about sternal precautions. Would like assisted living home director to help with ADLs. Objective: Vital Signs Temp Pulse Resp BP Pulse Ox 36.6 C 58 L 12 126/70 H 98 01/07/18 07:05 01/07/18 07:05 01/07/18 07:05 01/07/18 07:05 01/07/18 07:05 Laboratory Results 01/06/18 06:45 01/06/18 01/07/18 01/08/18 05:59 05:59 05:59 Intake Total 1480 Output Total 205 Balance 1275 Cardioresp status stable. Excellent sats on 1 lpm. Likely ok on RA. Minimal CTOP last shift. - Pending Discharge Pending Discharge Within 24 Hours: Yes Pending Discharge Date: 01/08/18 Pending Discharge Time: 11:00 Physical Exam - Physical Exam General Appearance: alert, no apparent distress Respiratory: lungs clear (grossly), other (cortez drain to bulb suction, thin serosang drainage. ) Cardiac/Chest: regular rate, rhythm, other (Sternotomy CDI) Abdomen: non-tender, soft Skin: warm/dry Extremities: other (no visible edema) ICD10 Worksheet Patient Problems: Problems Problem Status Onset Sternal pain Acute S/P CABG x 5 Acute CAD (coronary artery disease) Chronic Ischemic cardiomyopathy Chronic
[2018-01-07] MEDS: ASPIRIN 81 MG CHEWABLE TAB PO SCH (08:12)
[2018-01-07] MEDS: POTASSIUM CL 20 MEQ TAB PO SCH (08:12)
[2018-01-07] MEDS: SENNOSIDES/DOCUSATE SODIUM TAB PO SCH (08:12)
[2018-01-07] MEDS: FUROSEMIDE 40 MG TAB PO SCH (08:13)
[2018-01-07] MEDS: CARVEDILOL 3.125 MG TAB PO SCH ×2 (08:13→20:44)
[2018-01-07] MEDS: ENOXAPARIN 40 MG/0.4 ML SYR SC SCH (08:15)
[2018-01-07] MEDS ORDERED: SENNOSIDES/DOCUSATE SODIUM TAB PO PRN (09:00)
--- NOTE | 2018-01-07 10:12 | ASMTCASEMG ---
Living Arrangements What is your living Answers: With Other (Not Family) arrangement? Who do you live with? Type Of Residence What kind of residence do Answers: House you live in? Discharge Plan Comments Coordination Status Comments Notes: CM spoke w/ MIRANDA Ceballos regarding d/c POC. Pt is a 62 y/o female admitted for sternal instability. Pt reports that she had [facility] in the past. Pt is requesting to have [facility] to have an RN come check in a couple times a week. [place] [address] [place] [id number]. Pt reports that the address listed on her facesheet is her mailing address. Pt does not want CM to call bed board to change it. Referral made to [facility]. CM to follow. Plan: [facility] MIRANDA PATTON Date Signed: 01/07/2018 10:11 AM Electronically Signed By:JAZMINE Kern
[2018-01-07] MEDS: ATORVASTATIN CALCIUM 40 MG TAB PO SCH (20:44)
[2018-01-08] MEDS: oxyCODONE IR 5 MG TAB PO PRN ×2 (05:07→10:28)
[2018-01-08] MEDS: LEVOTHYROXINE 137 MCG TAB PO SCH (05:07)
[2018-01-08 07:22] VITALS: BP 130/72
--- NOTE | 2018-01-08 07:36 | SOAPPROG ---
SOAP Progress Note Assessment/Plan: Assessment: POD#2 Sternal debridement and restabilization with Alan live Unstable sternum - Old hardware removed and replaced. Drain out. Adequate pain control. Tolerating light activity without assistance. Stable CAD - s/p CABG. Secondary prevention with ASA, BB and statin resumed. Plan: Ok for discharge. Instructions re diet, meds, activity, f/u and wound care to be reviewed. 01/08/18 07:35 Subjective: Slept well. Good pain control with oxy IR. Independent with bed and chair transfers. "Burning holes in the carpet". No acute concerns. To tap social network for home help and transportation. Objective: Vital Signs Temp Pulse Resp BP Pulse Ox 37.1 C 80 18 130/72 H 91 L 01/08/18 07:17 01/08/18 07:17 01/08/18 07:17 01/08/18 07:17 01/08/18 07:17 Laboratory Results 01/06/18 06:45 01/07/18 01/08/18 01/09/18 05:59 05:59 05:59 Intake Total 1480 1450 Output Total 205 Balance 1275 1450 Cardioresp status stable. Physical Exam - Physical Exam General Appearance: alert, no apparent distress Respiratory: lungs clear Cardiac/Chest: regular rate, rhythm, other (Sternotomy CDI. Chest tube site clean and moist.) Abdomen: non-tender, soft Skin: warm/dry Extremities: other (no visible edema) ICD10 Worksheet Patient Problems: Problems Problem Status Onset Sternal pain Acute S/P CABG x 5 Acute CAD (coronary artery disease) Chronic Ischemic cardiomyopathy Chronic
[2018-01-08] MEDS: ASPIRIN 81 MG CHEWABLE TAB PO SCH (08:57)
[2018-01-08] MEDS: POTASSIUM CL 20 MEQ TAB PO SCH (08:57)
[2018-01-08] MEDS: CARVEDILOL 3.125 MG TAB PO SCH (08:57)
[2018-01-08] MEDS: ENOXAPARIN 40 MG/0.4 ML SYR SC SCH (08:57)
[2018-01-08] MEDS: FUROSEMIDE 40 MG TAB PO SCH (09:00)
--- NOTE | 2018-01-08 10:08 | PDDCSUM ---
Discharge Summary Discharge Summary: DATE OF ADMISSION: 01/06/18 DATE OF DISCHARGE: 01/08/18 DISPOSITION: Home, self-care PRINCIPAL ADMISSION DIAGNOSIS: Unstable sternum post median sternotomy PRINCIPAL DISCHARGE DIAGNOSES: 1. Sternal nonunion 2. Status post sternal debridement and restabilization with a Robicsek weave HISTORY OF PRESENT ILLNESS: 62 yo obese female who underwent CABG x 5 on 10/01/17 evaluated in clinic for signs and symptoms of persistent sternal instability after awkwardly lifting a heavy box and admitted for elective exploration and restabilization. PERTINENT PAST MEDICAL HISTORY: AMI on 02/05/17; ISCM with LVEF improving from 20% range to 35% range on medical therapy prior to CABG; hyperlipidemia; PAVEL; cold induced asthma; hypothyroidism ; chronic left leg weakness s/p remote orthopedic procedure; single episode of paroxysmal atrial fibrillation early postop CABG MEDICATIONS ON ADMISSION: ASA 81 mg daily, Coreg 3.125 mg BID, Atorvastatin 80 mg hs, Nitrostat 0.4 mg SL q5min prn, Amiodarone 200 mg daily, Lasix 60 mg daily, Klor-Con 20meq daily, Synthroid 137 mcg daily, Tramadol 25-50 mg Q6h prn, Proventil MDI 60 puffs/8 gm 1-2 puffs daily prn. ALLERGIES/SENSITIVITIES: Amoxicillin and penicillins causing giant hives and swelling CONSULTANTS: none PROCEDURE: 01/06 (Lindsay): Revision of previous sternal scar. Removal of all sternal wires and bands. Debridement of fibrous nonunion. Reapproximation of sternal edges with sternal bands, wires and Robicsek weave. ABBREVIATED HOSPITAL COURSE BY ACTIVE PROBLEM LIST: 1. Unstable sternum - Distal nonunion. No evidence infection. Old hardware removed and replaced. Strict sternal precautions x 6 wks. 2. Stable CAD - s/p CABG. Secondary prevention with ASA, BB and statin resumed. HR and BP controlled. No apparent dysrhythmias. Amiodarone stopped. DISCHARGE CLINICAL INFORMATION: Sternum grossly stable. Sternotomy CDI, sutured, +Dermabond. HR 60s-80s. SBP 120s-130s. SpO2 91% RA. Wt 0.5 kg below admission at 91.3 kilos. WBC 7.9, HCT 44, Na 142, K 3.9, Cr 1.0 DISCHARGE MEDICATIONS: As on admission with the following adjustments: Stop amiodarone. NEW prescriptions: Oxycodone IR 5 mg one-half to two tabs q 4-6hrs prn incisional discomfort. FOLLOW UP APPOINTMENTS: CV surgery: with Dr Montoya at [facility] on 01/20 at 9:45 am. FOLLOW UP TESTING: CXR prior to surgical appointment.
--- NOTE | 2018-01-08 13:45 | ASDISCHSUM ---
Discharge Information Plan Status:Home with No Needs Medically Cleared to Leave:01/08/2018 Discharge Date:01/08/2018 01:02 PM D/C Disposition: ADT D/C Disposition:Home, Routine, Self-Care Projected Discharge Date:01/08/2018 11:00 AM Transportation at D/C: Discharge Delay Reason: Follow-Up Date:01/08/2018 11:00 AM Discharge Slot: Final Diagnosis: Placement Information Referral Type:*Home Health Care Services Referral ID:[id number] Provider Name: Address 1: Phone Number: Address 2: Fax Number: City: Selection Factors: State: Patient Contact Information Contact Name:CINTHYA Relationship:Friend Address:[phone] [address] Work Phone: City:[facility] Alternate Phone: State/Zip Code:[place] [address] Email: Financial Information Financial Class:Medicaid Primary Plan Desc:MED[place] Primary Plan Number:[id number] Secondary Plan Desc: Secondary Plan Number: Assessment Information [facility] Initial CM Assessment Living Arrangements What is your living Answers: With Other (Not Family) arrangement? Who do you live with? Type Of Residence What kind of residence do Answers: House you live in? Discharge Plan Comments Coordination Status Comments Notes: CM spoke w/ MIRANDA Ceballos regarding d/c POC. Pt is a 62 y/o female admitted for sternal instability. Pt reports that she had [facility] in the past. Pt is requesting to have [facility] to have an RN come check in a couple times a week. Pt reports that [place] [address] is [address] [address]. Pt reports that the address listed on her facesheet is her mailing address. Pt does not want CM to call bed board to change it. Referral made to [facility]. CM to follow. Plan: Narinder PATTON RN Date Signed: 01/07/2018 10:11 AM Electronically Signed By:JAZMINE Kern Case Management Discharge Plan Note Case Management Discharge Discharge Order Complete? Answers: Yes Patient to Obtain Answers: via Family Medications Transportation Arranged Answers: Family/Friends EMTALA Complete Answers: No Case Management Transport Answers: No Form Complete Faxed Final Orders Answers: No Agency/Facility Transfer Answers: No Report Printed & Faxed to Receiving Agency Family Notified Answers: No Discharge Comments Notes: CM spoke w/ CORRINA Winkler regarding d/c POC. Emilia is recommending pt goes home independent without any needs. CM notified [facility] that they are not needed at this time. CM available for changes. Plan: Independent Date Signed: 01/08/2018 10:36 AM Electronically Signed By:JAZMINE Kern Intervention Information
== END 2018-01-08 13:02 | disposition home or self-care (01) | DRG 909 ==
LOC: F2N 05:48 → F2W 08:46
PROVIDERS: ADMIT Thoracic Surgery (Cardiothoracic Vascular Surgery); ATTEND Thoracic Surgery (Cardiothoracic Vascular Surgery)
PROC: 0PD00ZZ Extraction of Sternum, Open Approach (ICD-10-PCS; principal; 2018-01-06 07:15)
DX: T81.32XA Disruption of internal operation (surgical) wound, not elsewhere classified, initial encounter (principal); I25.10 Atherosclerotic heart disease of native coronary artery without angina pectoris; I25.2 Old myocardial infarction; Z95.1 Presence of aortocoronary bypass graft; E78.5 Hyperlipidemia, unspecified; E03.9 Hypothyroidism, unspecified; G47.33 Obstructive sleep apnea (adult) (pediatric)
CPT/HCPCS: 97161-GP; 97530-GP; J1100; J1650; J1885; J2250; J2405; J2704; J3010; J3370

== ENCOUNTER → 2018-01-20 | Outpatient (CLI) | payer MEDICAID | LOC: FIMAGING 09:20 | PROVIDERS: ATTEND Thoracic Surgery (Cardiothoracic Vascular Surgery) | DX: Z09 Encounter for follow-up examination after completed treatment for conditions other than malignant neoplasm (principal); Z98.890 Other specified postprocedural states ==